=== PATIENT | male | born 1995 | race African-American/Black ===

== ENCOUNTER 2017-07-06 12:06 | Day surgery (SDC) | payer OTHER ==
[2017-07-04 12:12] VITALS: BMI 31.1
[2017-07-06] MEDS ORDERED: LIDOCAINE HCL 1%, 10 MG/ML (20ML VIAL) ONE (12:40)
[2017-07-06] MEDS ORDERED: BUPIVACAINE HCL/PF 2.5 MG/ML - 30 ML VIAL IJ ONE (12:40)
[2017-07-06] MEDS ORDERED: MIDAZOLAM HCL 2 MG/2 ML SINGLE DOSE VIAL ONE (12:42)
--- NOTE | 2017-07-06 14:23 | OP ---
DATE OF OPERATION: 07/06/2017 PREOPERATIVE DIAGNOSIS: Left inguinal hernia. POSTOPERATIVE DIAGNOSIS: Left inguinal hernia. PROCEDURE: Repair of the hernia with plug and mesh. SURGEON: Yocasta Roman MD ANESTHESIA: Local sedation. DESCRIPTION OF PROCEDURE: The patient was brought in the operating room. All the preoperative surgical marking was done. Intravenous antibiotics. Local Marcaine was injected. Left groin was prepped and draped. After the injection was done, left groin incision was made down to the external oblique aponeurosis, which was opened. Spermatic cord structures were isolated from the pubic tubercle and dissection revealed a large direct hernia. The hernia was reduced into the abdominal cavity and the plug was used, which was sutured to the ring of the transversalis fascia. Mesh was used to repair the floor, medially to the pubic tubercle, superiorly to the conjoint tendon, inferiorly to the reflector part of the inguinal ligament and around the spermatic cord structures to form a new ring. The external was then closed over it and subcutaneous tissue and skin were closed and the patient went to the recovery room. Day [id number]
[2017-07-06] MEDS ORDERED: ONDANSETRON 4 MG/2 ML VIAL IVPUSH PRN (14:54)
[2017-07-06] MEDS ORDERED: oxyCODONE HCL 5 MG TABLET PO PRN ×2 (14:54)
[2017-07-06] MEDS ORDERED: LACTATED RINGERS SOLUTION 1,000 ML IV SCH (15:00)
[2017-07-06 15:02] VITALS: TEMP 98
[2017-07-06 15:31] VITALS: BP 140/69; PULSE 78
== END 2017-07-06 15:35 | disposition home or self-care (01) ==
LOC: FASU 12:06
PROVIDERS: ATTEND Surgery Vascular Surgery
PROC: 0YU60JZ Supplement Left Inguinal Region with Synthetic Substitute, Open Approach (ICD-10-PCS; principal; 2017-07-06 12:57)
DX: K40.90 Unilateral inguinal hernia, without obstruction or gangrene, not specified as recurrent (principal)
CPT/HCPCS: 94760